=== PATIENT | female | born 1975 | race Caucasian/White ===

== ENCOUNTER 2021-12-07 13:05 | Outpatient (CLI) | payer OTHER, SELFPAY ==
--- OUTSIDE RECORDS SUMMARY | 2021-11-02 10:30 | XMS_ITS | Continuity of Care Document ---
:1975 Author Care Team Providers Name Role Phone MD Michael L Primary Care Physician CHASE Sarabia CNP M Attending Physician Allergies, Adverse Reactions, Alerts Allergen Type Severity Reaction Last Updated Verified Status No Known Drug Allergy Unknown January Yes Active Allergy 2020 Social History Smoking Status Status Start Date End Date Date of Observat ion Never smoked tobacco February 8:20am (finding) Observation Status Observation Response Date of Response Occasional alcohol consumption November 9:46am Nonsmoker November 19, 2018 9:46 am Does not use illicit drugs November 19 9:46am Additional Data Assigned Sex Female Problems Active Problems Medical Problem Onset Date Status Migraines Active Encounter for screening for COVID-19 Act fiorella Cough Active History of appendectomy Active History of D&C Active History of esophagogastroduodenoscopy Ac tive (EGD) Medications Medication Status Dose Units Route Directions Qty Days Start End Ins tructions Date Date Amoxicillin Active 875 MG PO Twice Daily For 10 Days er 2020 1:46pm Acetaminophe Disconti 1 TABLET PO Q4-6H Prn November t FOR VICODIN n/Hydrocodon nued , , 7.5/750 e Bitart 2011 2011 (Vicodin 4:47pm 9:11am 7.5/750) 7.5 Mg/750 Mg TAB Acetaminophe Disconti 1 - 2 TABLET PO Every 4-6 May aditya PRN n/Hydrocodon nued Hours , e Bitart 2010 02, (Vicodin) 5 4:47pm 2010 Mg/500 Mg 10:23a TAB m Amoxicillin Disconti 875 MG PO Twice Daily July m nued For 10 Days 9, 2020, 5:28pm 2020 12:37p m Amoxicillin Disconti 500 MG PO Tid X 10 August nued Days , , 2015 2015 7:00pm 3:50pm Amoxicillin Disconti 875 MG PO Twice A Day 14 Oct e nued y , 2008 3:58pm 11:46a m Amoxicillin Disconti 875 TABLET PO Twice A Day Augustu st & Pot nued , , Clavulanate 2006 2007 (Augmentin) 2:01pm 10:24a 875 Mg/125 m Mg TAB Azithromycin Disconti 250-50 MG PO As Directed 6 Decembe D ecemb 500 MG ON DAY (Zithromax nued 0 r 10th, er 1 THEN 250 MG Z-Ken) 250 2013, DAILY X 4 Mg TAB 6:22pm 2013 MORE DAYS 1:43pm Benzonatate Disconti 200 MG PO Three Times 30 Decembnov y nued A Day as r , , needed 2018 2019 1:21pm 11:26a m Calcium Disconti Unknow PO Daily 100 Septem Carbonate nued n Dose kennedy 2020 3:43pm Cholecalcife Disconti 5000 UNIT PO Daily 100 Septem rol (Vitamin nued kennedy D) 5,000 , Unit TAB 2020 3:43pm Cholecalcife Disconti 1000 UNIT PO Twice A Day st rol (Vitamin nued , D-3) 1,000 2011 Unit TAB 8:16pm Cyclobenzapr Disconti 10 MG PO Three Times 08 December Dece mb ine Hcl nued A Day as 11, er needed 2018, 10:06am 2018 12:37p m Diphtheria/T Disconti 0.5 ML IM Once Februaryobe etanus/Acell nued 2nd, r 2nd, Pertussis 2016 2016 (Adacel) 0.5 1:15pm 2:06pm Ml INJ Doxycycline Disconti 100 MG PO Twice A Day 6 May uar start Hyclate nued r , y medication 2010, the day prior 2:40pm 2011 to the 3:26pm procedure. Etonogestrel Disconti 1 UNIT VA As Directed August st -Ethinyl nued 9th, 13th, Estradiol 2006 2007 (Nuvaring) 1:43pm 10:24a MIS m Fluconazole Disconti 150 MG PO Once November REPEAT IN nued 10th, 7th, 3 DAYS 2011 2011 10:28am 9:11am Fluconazole Disconti 150 MG PO Once December Delfin e one tab (Diflucan) nued , er today. I f 150 Mg TAB 2010 08, still 3:06pm 2010 symptomatic 3:26pm in 3 days, okay to repeat. Fluticasone Disconti 2 SPRAY EACH Daily Propionate nued NOSTR y (Flonase) 50 , Mcg/1 Maud 2009 DANNY 3:44pm Hydrocortiso Disconti 1 MARILU TOP Twice A Day Julyo be STOP AFTER 2 ne nued , r 2nd, WEEKS. (Hydrocortis 2016 2016 one Cream) 5:48pm 12:54p 2.5 % CRE m Hydrocortiso Disconti 2.5 % TX Three Times December aditya ne (Rectal) nued A Day , ry (Anusol-Hc) 2007 10, 2.5 % CRE 11:11am 2008 3:41pm Influenza Disconti 0.5 ML IM Once Februaryobe Virus Vacc nued , r Triv Types 2009, A&B (Fluarix 11:33am 2009) 0.5 3:29pm Ml INJ Influenza Disconti 0.5 ML IM Once Virus Vacc nued r 11th, er Triv Types 2008 11, A&B 1:04pm 2008 (Fluarix) 1:15pm 0.5 Ml INJ Influenza Disconti 0.5 ML IM Once Februaryobe Virus Vacc nued , r Triv Types 2005 24, A&B 3:59pm 2005 (Fluarix) 4:12pm 0.5 Ml INJ Influenza Disconti 0.5 ML IM Once Februaryobe Virus nued , r Vaccine 2010, (Fluzone Pf 3:59pm 2010 [id number] 4:00pm (0.5 Ml)) 0.5 Ml INJ Influenza Disconti 0.5 ML IM Once Februaryobe Virus nued , r Vaccine 2011, Split 11:03am 2011 (Fluzone Pf 11:21a [id number] m (0.5 Ml)) 0.5 Ml INJ Lactated Disconti 1 L IV Once 1 Februar Februa Ringer's nued y , ry 2011, 5:03pm 2011 5:06pm Loteprednol Disconti 1 DROP OP Qid X 10 12 May Februa Etabonate nued Days , (Alrex) 0.2 2016 05, % RIGOBERTO 2:12pm 2016 3:22pm Multiple Disconti 1 TAB PO Daily Vitamins W/ nued kennedy Minerals , (Womens 2020 Multivitamin 3:43pm ) 1 Tab TAB Multiple Disconti 1 TAB PO Daily August Vitamins W/ nued , Minerals 2018 (Airborne) 1 10:50a Tab TAB m Multivitamin Disconti 1 TAB PO Daily Octobe s nued r , (Multivitami 2016 n/Minerals) 12:54p TAB m Norethindron Disconti 0.35 MG PO Daily February e nued , , (Contracepti 2011 2014 ve) (Liudmila) 11:03am 3:43pm 0.35 Mg TAB Omeprazole Disconti 20 MG PO Twice A Day Octobe nued r 2011 10:34a m Omeprazole Disconti 20 MG PO Daily 08 September nued 2011 10:22a m Ondansetron Disconti 4 MG PO Q6hrs uadecember (Zofran) 2 nued y , , Mg/Ml INJ 2006 2007 4:14pm 10:24a m Ondansetron Disconti 4 MG PO Every 8 August Hcl nued Hours as , , (Ondansetron needed 2018 2018 Odt) 4 Mg 2:03pm 10:50a TAB m Ondansetron Disconti 4 MG PO Q6hr 08 September Octobe Hcl nued , r 2011, 9:40am 2011 10:34a m Ondansetron Disconti 4 MG PO Q6hr May Hcl nued , 2011 9:25am 9:40am Ondansetron Disconti 4 MG IV Once 1 Februar Februa Hcl (Zofran nued y 24, ry Inj) 2 Mg/Ml 2011, ML 5:03pm 2011 5:06pm Ondansetron Disconti 4 MG PO Every 6 10 June Februa Hcl (Zofran) nued Hours as , ry 4 Mg TAB needed 2010 02, 12:06pm 2009 10:24a m Ondansetron Disconti 4 MG PO As Needed December Hcl (Zofran) nued , 4 Mg TAB 2007 10:24a m Ondansetron Disconti 4 MG PO Novem Hcl (Zofran) nued er 4 Mg TAB 2005 1:37pm Oseltamivir Disconti 75 MG PO Twice A Day 10 [facility] ch Phosphate nued r , , (Tamiflu) 75 2013 2015 Mg CAP 2:14pm 8:09am Oseltamivir Disconti 75 MG PO Twice A Day 10 [facility] ch Phosphate nued r , , (Tamiflu) 75 2013 2016 Mg CAP 2:39pm 8:09am Oxycodone/Ac Disconti 1 TABLET PO Every 6 August etaminophen nued Hours as , , needed 2018 2018 12:03pm 9:19am Pantoprazole Disconti 20 MG PO As Needed Augu st Sodium nued r , , (Protonix) 2005 2007 40 Mg TABEC 1:59pm 10:24a m Pantoprazole Disconti 40 MG PO Daily 30 uar December Sodium nued y , , (Protonix) 2006 2007 40 Mg TABEC 4:14pm 10:24a m Pantoprazole Disconti 20 MG PO Daily 10 March Novemb Sodium nued 24, er (Protonix) 2005 17, 40 Mg TABEC 4:02pm 2005 1:59pm Pantoprazole Disconti 20 MG PO Daily 30 Febobe Sodium nued r (Protonix) , 40 Mg TABEC 2005 4:02pm Penicillin V Disconti 500 MG PO Twice A Day August Apri l Potassium nued , 2018 2:00pm 10:50a m Penicillin V Disconti 500 MG PO Three Times October ar Potassium nued A Day , y 2015 6:47pm 1:44pm Penicillin V Disconti 500 MG PO Twice A Day 19 October Potassium nued 2011 9:10am Polymyxin/Tr Disconti 1 DROP RIGHT Every 3-4 February ar TO AFFECTED imethoprim nued EYE Hours , y EYE Sulfate 2008, (Polytrim) 11:36am 2009 SONIDO 3:44pm Ranitidine Disconti 150 MG PO Bedtime Octobe Hcl nued r 2011 10:34a m Sulfamethoxa Disconti 1 TAB PO Twice A Day November st zole-Trimeth nued , , oprim 2019 2019 (Bactrim Ds) 11:35am 1:28pm 800 Mg/160 Mg TAB Triamcinolon Disconti 10 MG IM/IV/ Once December e Acet nued SC , , (Kenalog-40) 2019 2019 40 Mg/1 Ml 1:50pm 2:52pm SUSP Valacyclovir Disconti 1 GRAMS PO Twice A Day August Hcl nued , , (Valtrex) 2018 Gm TAB 12:03pm 9:19am Valacyclovir Disconti 500 MG PO Twice A Day August Hcl nued , , (Valtrex) 2018 2018 500 Mg TAB 12:03pm 9:19am Valacyclovir Disconti 1 GRAMS PO Three Times 30 August Apr l Hcl nued A Day , , (Valtrex) 2018 Gm TAB 6:47pm 12:03p m Vit Disconti 1 TABLET PO Daily July B12/Iron/Fol nued , ic Ac/Intrin 2013 Fact 3:43pm ( Multivit-Min W/Fe-Fa) TAB Vit Disconti 1 TABLET PO Daily December B12/Iron/Fol nued , ic Ac/Intrin 2007 Fact 10:24a ( m Multivit-Min W/Fe-Fa) TAB Immunizations Immunization Event Date Not Given Dose Superintendent Building Lot Vac cine Reason Number Number Informatio n Statement (VIS) Deta il Influenza March 12 [employer] [id number] 2007 Influenza February 10 Glaxosmithkline [id number] 2009 Influenza February 11 San[employer]i Paste[employer] [id number] 2010 Influenza February 12 San[employer] Pasteur [id number] 2011 Influenza January 14 [id number] 2016 Tetanus/Dipther July 19, [place] 2002 Tdap February 10 SANOFI [id number] (adolescent/frank 2016 lt) Advance Directives Advance Directive Response Recorded Date/Time Does Pt have Health Care No August 09 6 12:35pm Directive? Has patient completed a No December 27 0 2:17pm Health Care Directive? Insurance Providers Guarantor Shari Bonilla Address [address] [place], [place] [id number] Contact Info. Home Phone: C Payer Policy Id Coverage Id Subscriber's Subscriber Id Effective E xpiration Name Date Date [facility] [id number] Meet Bonilla May 12, [employer] 2016 Choice Plan of Treatment Future Tests Future scheduled test information is unavailable Pending Tests Pending diagnostic test information is unavailable Future Visits Future appointment information is unavailable Referrals to Other Providers Reason for Referral Start Provider Provider Contact Provider Address Referral Date Information PCP, UNASSIGNED Future Procedures Procedure Name Scheduled Date EGD BERNICE Bilat Mammo Scrn Future Medications Future medication information is unavailable Patient Instructions Genital Herpes Simplex (ED) Viral Syndrome (ED)
--- NOTE | 2021-12-07 13:00 | CRLHL7_ITS ---
For Patients: As a result of the Century Cures Act, medical imaging exams and procedure reports are released immediately into your electronic medical record. You may view this report before your referring provider. If you have questions, please contact your health care provider. BILATERAL MAMMOGRAM WITH COMPUTER-AIDED DETECTION AND TOMOSYNTHESIS TECHNIQUE: CC and MLO views were obtained. These mammographic images have been obtained using full-field digital technique. These mammographic images were interpreted with the benefit of computer-aided detection. Breast Tomosynthesis was used in this interpretation. COMPARISON FILM: 09/14/20, 10/20/18, 03/06/17 FINDINGS: The breasts are heterogeneously dense, which may obscure small masses IMPRESSION: There is no radiographic evidence for malignancy. ASSESSMENT: BI-RADS Category 1: Negative RECOMMENDATION: Routine screening mammogram in 1 year. A lay language report of this examination will be provided to the patient. Eric Ambrose M.D. Diagnostic Radiologist [email or web address] HEATH/Dictated by: Eric Ambrose MD @ 12/10/2021 9:11:00 AM (Electronically Signed)
== END 2021-12-07 13:06 | disposition home or self-care (01) ==
LOC: MAMMO 13:06
PROVIDERS: Visit Provider Obstetrics & Gynecology
DX: Z12.31 Encounter for screening mammogram for malignant neoplasm of breast (principal); R92.2 Inconclusive mammogram
CPT/HCPCS: 77063; 77067

== ENCOUNTER 2021-12-24 11:19 | Outpatient (CLI) | payer OTHER, SELFPAY ==
[2021-12-24 13:11] LABS: Glucose* 97 mg/dL (60-115)
[2021-12-24 14:17] LABS: Free T4 Free Thyroxine* 1.13 ng/dL (0.70-1.85)
== END 2021-12-24 11:20 | disposition home or self-care (01) ==
LOC: NFLDREF 11:20
PROVIDERS: Visit Provider Obstetrics & Gynecology
DX: Z01.419 Encounter for gynecological examination (general) (routine) without abnormal findings (principal); Z13.1 Encounter for screening for diabetes mellitus; Z13.29 Encounter for screening for other suspected endocrine disorder
CPT/HCPCS: 82947; 84439; 84443

== ENCOUNTER 2022-01-18 15:30 | Outpatient (RCR) | payer OTHER, SELFPAY | END 2022-05-02 11:04 | disposition home or self-care (01) | PROVIDERS: Visit Provider Surgery | DX: R35.0 Frequency of micturition (principal); Z51.89 Encounter for other specified aftercare | CPT/HCPCS: 97110; 97140; 97163; 97535 ==

== ENCOUNTER 2022-04-23 12:47 | Outpatient (CLI) | payer OTHER, SELFPAY ==
[2022-04-23 23:23] LABS: Free T4 Free Thyroxine* 0.93 ng/dL (0.70-1.85)
== END 2022-04-23 12:48 | disposition home or self-care (01) ==
LOC: LKVREF 19:54
PROVIDERS: Visit Provider Obstetrics & Gynecology
DX: N39.0 Urinary tract infection, site not specified (principal); Z13.29 Encounter for screening for other suspected endocrine disorder
CPT/HCPCS: 84439; 84443; 87086

== ENCOUNTER 2022-10-22 14:14 | Outpatient (CLI) | payer OTHER, SELFPAY | END 2022-10-22 14:15 | disposition home or self-care (01) | LOC: LKVREF 14:15 | PROVIDERS: Visit Provider Obstetrics & Gynecology | DX: R79.89 Other specified abnormal findings of blood chemistry (principal) | CPT/HCPCS: 84443 ==

== ENCOUNTER 2023-11-19 15:19 | Outpatient (CLI) | payer BC, SELFPAY ==
--- NOTE | 2023-11-19 15:20 | CRLHL7_ITS ---
For Patients: As a result of the Century Cures Act, medical imaging exams and procedure reports are released immediately into your electronic medical record. You may view this report before your referring provider. If you have questions, please contact your health care provider. BILATERAL SCREENING MAMMOGRAM WITH COMPUTER-AIDED DETECTION AND TOMOSYNTHESIS TECHNIQUE: CC and MLO views were obtained. These mammographic images have been obtained using full-field digital technique. These mammographic images were interpreted with the benefit of computer-aided detection. Breast Tomosynthesis was used in this interpretation. COMPARISON FILM: 12/07/21, 09/14/20, 10/20/18. FINDINGS: The breasts are heterogeneously dense, which may obscure small masses. IMPRESSION: There is no radiographic evidence for malignancy. ASSESSMENT: BI-RADS Category 2: Benign RECOMMENDATION: Routine screening mammogram in 1 year. A lay language report of this examination will be provided to the patient. Marc Vega M.D. Diagnostic/Nuclear Medicine Radiologist [email or web address] EVELYNE/jose SP/Dictated by: Marc Vega MD @ 11/20/2023 10:53:00 AM (Electronically Signed)
== END 2023-11-19 15:20 | disposition home or self-care (01) ==
LOC: MAMMO 15:19
PROVIDERS: Visit Provider Obstetrics & Gynecology
DX: Z12.31 Encounter for screening mammogram for malignant neoplasm of breast (principal); R92.2 Inconclusive mammogram
CPT/HCPCS: 77063; 77067

== ENCOUNTER 2023-11-21 08:09 | Outpatient (CLI) | payer BC, SELFPAY | END 2023-11-21 08:10 | disposition home or self-care (01) | LOC: NFLDREF 17:43 | PROVIDERS: Visit Provider Obstetrics & Gynecology | DX: Z01.419 Encounter for gynecological examination (general) (routine) without abnormal findings (principal); Z13.1 Encounter for screening for diabetes mellitus; Z13.6 Encounter for screening for cardiovascular disorders; Z13.29 Encounter for screening for other suspected endocrine disorder | CPT/HCPCS: 80061; 84439; 84443 ==

== ENCOUNTER 2024-07-26 09:36 | Outpatient (CLI) | payer BC, SELFPAY | END 2024-07-26 09:37 | disposition home or self-care (01) | PROVIDERS: Visit Provider Obstetrics & Gynecology | DX: R79.89 Other specified abnormal findings of blood chemistry (principal); N92.6 Irregular menstruation, unspecified; R23.2 Flushing | CPT/HCPCS: 82565; 84439; 84443 ==

== ENCOUNTER 2024-08-04 08:53 | Outpatient (CLI) | payer BC, SELFPAY ==
--- NOTE | 2024-08-04 09:15 | CRLHL7_ITS ---
For Patients: As a result of the Century Cures Act, medical imaging exams and procedure reports are released immediately into your electronic medical record. You may view this report before your referring provider. If you have questions, please contact your health care provider. INDICATION: Irregular menstruation. IUD check. TECHNIQUE: Transabdominal and transvaginal scanning was performed. Transvaginal scanning was performed to optimally evaluate the endometrium and adnexa. Ovarian blood flow was evaluated with color-flow and pulsed Doppler. COMPARISON: None FINDINGS: The uterus is normal in size and shape. The uterus measures 9.1 x 4.8 x 5.2 cm. No myometrial mass is evident. A 2.1 x 1.2 x 1.1 cm endometrial polyp appears to be present in the uterine fundus. Color-flow Doppler demonstrates blood flow within this lesion. An IUD is present in the uterine cavity and appears to be properly positioned. The ovaries are normal in size and contain a number of follicles. The right ovary measures 3.3 x 2.6 x 1.8 cm and left 5.2 x 2.6 x 2.5 cm. Ovarian blood flow is demonstrated with color-flow and pulsed Doppler. No adnexal mass is evident. No free fluid is demonstrated. IMPRESSION: 1. Apparent 2.1 x 1.2 x 1.1 cm endometrial polyp in the uterine fundus. 2. Properly positioned IUD. Dictated by Troy Tran MD @ 08/05/2024 4:47:59 AM (Electronically Signed)
== END 2024-08-04 08:54 | disposition home or self-care (01) ==
LOC: US 08:54
PROVIDERS: Visit Provider Obstetrics & Gynecology
DX: N92.6 Irregular menstruation, unspecified (principal); N84.0 Polyp of corpus uteri; T83.32XA Displacement of intrauterine contraceptive device, initial encounter
CPT/HCPCS: 76830; 80061; 84481; 86376; 86800

== ENCOUNTER 2024-08-30 19:00 | Outpatient (CLI) | payer BC, SELFPAY | END 2024-08-30 19:01 | disposition home or self-care (01) | LOC: LKVREF 19:01 | PROVIDERS: Visit Provider Family Medicine | DX: Z52.4 Kidney donor (principal); E11.9 Type 2 diabetes mellitus without complications | CPT/HCPCS: 80053; 82043; 82570 ==

== ENCOUNTER 2024-09-14 06:00 | Day surgery (SDC) | payer BC, SELFPAY ==
[2024-09-14] MEDS: LACTATED RINGERS 1000 ML 1,000 ML 100 ML IV (06:05)
[2024-09-14 06:26] VITALS: BMI 34.9
[2024-09-14 06:38] LABS: Ur HCG Qualitative* Negative (Negative)
[2024-09-14 06:42] VITALS: BP 116/77; PULSE 75; RESP 16; TEMP 36.6; O2SAT 97
[2024-09-14] MEDS: SODIUM CHLORIDE 0.9 % (FLUSH) 10 ML SYRINGE IVF (06:43)
[2024-09-14] MEDS: CEFAZOLIN 2 GM INJ IVP (07:35)
[2024-09-14] MEDS: LIDOCAINE 1% MDV 20 ML INJECTION (07:41)
[2024-09-14] MEDS: BUPIVACAINE 0.25% 30 ML INJECTION (07:41)
[2024-09-14] MEDS: levonorgestreL (Mirena) IUD 1 EACH INTRAUTERI (07:58)
[2024-09-14 08:10] VITALS: BP 102/69; PULSE 69; RESP 12; TEMP 36.2; O2SAT 97
--- NOTE | 2024-09-14 08:10 | P.GYNPRC_ITS ---
Procedure Note Date of procedure: 09/14/24 Will [facility] bill your pro fee for this procedure?: Yes Pre-op diagnosis: 1. Irregular persistent uterine bleeding on Mirena IUD 2. Possible endometrial polyp by ultrasound Post-op diagnosis: 1. Irregular persistent uterine bleeding on Mirena IUD 2. Endometrial polyp Procedure: 1. Hysteroscopy 2. D&C 3. Polypectomy $. Removal and replacement of Mirena IUD Anesthesia: MAC and local (paracervical block) Complications: None Surgeon: Margie Gonzalez MD Estimated blood loss (mL): 10 Pathology: specimen obtained, sent to pathology (Endometrial polyp and endometrial curettings (sent together)) Condition: stable Disposition: same day Findings: IUD strings retracted within the endocervical canal. Large endometrial polyp filling the endometrial cavity. Background endometrium normal in appearance. Normal tubal ostia bilaterally. Procedure Description: After obtaining informed consent, the patient was taken to the operating room where she received monitored anesthesia care. She was prepared and draped in the normal sterile fashion, in the dorsal lithotomy position. An open-sided bivalve speculum was introduced into the vagina and the cervix visualized. The anterior lip of the cervix was grasped with a single-tooth tenaculum for traction. A paracervical block was then administered using a total of 20 mL of a 50/50 mixture of 0.25% Marcaine and 1% lidocaine plain. The uterus was gently sounded. Sound length was 8.5 cm. A Tenzin Stone polyp forceps was inserted into the endocervix and on the second attempt, the IUD strings were grasped blindly and the Mirena IUD removed without difficulty. The cervix was gently dil ated to a #6 Hegar dilator. A hysteroscope was then advanced under direct visualization through the cervix into the uterine cavity. Sterile normal saline was used as distending medium. The uterine cavity was carefully inspected with the findings noted above. Pictures were taken for documentation purposes. The TruClear morcellator was inserted through the operating channel in the hysteroscope. The morcellator was used to remove the endometrial polyp in its entirety. The hysteroscope was then removed. The endometrial lining was then sharply curetted and a gritty feel was appreciated throughout. A new Mirena IUD was then loaded into the introducer, the length was set to 8.5 cm, and the IUD was inserted into the uterus to the level of the fundus and deployed. The introducer was removed and the string trimmed to 3 cm. The tenaculum was removed. There was little bleeding from the tenaculum site, which was controlled with direct pressure sponge stick. All instruments were then re moved. The patient tolerated the procedure well. Sponge, lap, needle, and instrument counts reported as correct x2. The patient was taken to the recovery room awake in a stable condition. She received 2 g IV Ancef preoperatively and IV acetaminophen at the conclusion of the procedure.
--- NOTE | 2024-09-14 08:11 | P.ANES_ITS ---
Anesthesia Charges Start Date/Time Anesthesia Start Date: 09/14/24 Anesthesia Start Time: 07:23 Stop Date/Time Anesthesia Stop Date: 09/14/24 Anesthesia Stop Time: 08:10 Coding CPT Codes CPT Codes: ANESTH HYSTEROSCOPE/GRAPH - 61651 ([id number]) P2 - PATIENT W/MILD SYST DISEASE, QK - TOXICOLOGIST 2-4 CNCRNT ANES PROC, QX - JIGMAN SVC W/ MD MED DIRECTION
--- NOTE | 2024-09-14 08:11 | W.ANESCHARGE ---
Anesthesia Charges Start Date/Time Anesthesia Start Date: 09/14/24 Anesthesia Start Time: 07:23 Stop Date/Time Anesthesia Stop Date: 09/14/24 Anesthesia Stop Time: 08:10 Coding CPT Codes CPT Codes: ANESTH HYSTEROSCOPE/GRAPH - 74345 ([id number]) P2 - PATIENT W/MILD SYST DISEASE, QK - WASTE CHOPPER 2-4 CNCRNT ANES PROC, QX - BULLET SWAGING MACHINE OPERATOR SVC W/ MD MED DIRECTION
[2024-09-14 08:15] VITALS: BP 104/77; PULSE 60; RESP 12; O2SAT 98
--- NOTE | 2024-09-14 08:18 | SUR.OPER ---
deficit= 370
[2024-09-14 08:30] VITALS: BP 106/88; PULSE 54; RESP 12; O2SAT 98
--- NOTE | 2024-09-14 08:31 | P.ANES_ITS ---
Anesthesia Charges Start Date/Time Anesthesia Start Date: 09/14/24 Anesthesia Start Time: 07:23 Stop Date/Time Anesthesia Stop Date: 09/14/24 Anesthesia Stop Time: 08:10 Coding CPT Codes CPT Codes: ANESTH HYSTEROSCOPE/GRAPH - 95388 ([id number]) QK - QUOTER 2-4 CNCRNT ANES PROC, QX - TOWBOAT OPERATOR SVC W/ MD MED DIRECTION, P2 - PATIENT W/MILD SYST DISEASE
--- NOTE | 2024-09-14 08:31 | W.ANESCHARGE ---
Anesthesia Charges Start Date/Time Anesthesia Start Date: 09/14/24 Anesthesia Start Time: 07:23 Stop Date/Time Anesthesia Stop Date: 09/14/24 Anesthesia Stop Time: 08:10 Coding CPT Codes CPT Codes: ANESTH HYSTEROSCOPE/GRAPH - 94402 ([id number]) QK - INTERNET SALES ASSOCIATE 2-4 CNCRNT ANES PROC, QX - PROPERTY HANDLER SVC W/ MD MED DIRECTION, P2 - PATIENT W/MILD SYST DISEASE
[2024-09-14 08:45] VITALS: BP 100/77; PULSE 51; RESP 12; O2SAT 98
[2024-09-14 09:00] VITALS: BP 105/74; PULSE 60; RESP 12; O2SAT 98
--- NOTE | 2024-09-14 10:02 | SUR.OPER ---
[id number]
== END 2024-09-14 09:20 | disposition home or self-care (01) ==
LOC: OR 06:02
PROVIDERS: Visit Provider Obstetrics & Gynecology
PROC: 0UDB8ZZ Extraction of Endometrium, Via Natural or Artificial Opening Endoscopic (ICD-10-PCS; CPT 58558; principal; 2024-09-14 07:15)
DX: N92.4 Excessive bleeding in the premenopausal period (principal); N93.8 Other specified abnormal uterine and vaginal bleeding; Z30.433 Encounter for removal and reinsertion of intrauterine contraceptive device; N84.0 Polyp of corpus uteri; E11.9 Type 2 diabetes mellitus without complications
CPT/HCPCS: 58558; 58301; 58300; 00952; 81025; 88305; J2003; C1782; J0131; J0665; J0690; J1100; J1885; J2250; J2405; J2704; J3010; J7120; J7298

== ENCOUNTER 2024-11-11 08:35 | Outpatient (CLI) | payer BC, SELFPAY ==
[2024-11-11 13:45] LABS: Cholesterol* 211 mg/dL (90-199); HDL Cholesterol* 41 mg/dL (>=50); Triglycerides* 77 mg/dL (40-149)
== END 2024-11-11 08:36 | disposition home or self-care (01) ==
LOC: NPINS 08:36
PROVIDERS: Visit Provider Internal Medicine Endocrinology, Diabetes & Metabolism
DX: E05.90 Thyrotoxicosis, unspecified without thyrotoxic crisis or storm (principal)
CPT/HCPCS: 80061; 82728

== ENCOUNTER 2024-11-11 08:49 | Outpatient (CLI) | payer BC, SELFPAY | END 2024-11-11 08:50 | disposition home or self-care (01) | LOC: NFLDREF 11-16 01:40 | PROVIDERS: Visit Provider Family Medicine | DX: E06.3 Autoimmune thyroiditis (principal); Z52.4 Kidney donor; E05.90 Thyrotoxicosis, unspecified without thyrotoxic crisis or storm | CPT/HCPCS: 82043; 82570; 84439; 84443; 84481 ==

== ENCOUNTER 2025-02-28 18:51 | Outpatient (CLI) | payer BC, SELFPAY | END 2025-02-28 18:52 | disposition home or self-care (01) | LOC: LKVREF 18:51 | PROVIDERS: Visit Provider Family Medicine | DX: E78.00 Pure hypercholesterolemia, unspecified (principal); Z52.4 Kidney donor | CPT/HCPCS: 80048 ==

== ENCOUNTER 2025-03-10 15:40 | Outpatient (CLI) | payer BC, SELFPAY ==
--- NOTE | 2025-03-10 15:40 | CRLHL7_ITS ---
For Patients: As a result of the Century Cures Act, medical imaging exams and procedure reports are released immediately into your electronic medical record. You may view this report before your referring provider. If you have questions, please contact your health care provider. INDICATION: BILATERAL SCREENING MAMMOGRAM, ASYMPTOMATIC 49 Y/O FEMALE COMPARISON: 11/19/2023, 12/07/2021, 09/14/2020 TECHNIQUE: Digital mammogram in CC and MLO projections including computer-aided detection (CAD) and tomosynthesis. BREAST COMPOSITION: The breasts are heterogeneously dense, which may obscure small masses. FINDINGS: No suspicious findings. ASSESSMENT: BI-RADS 2 Benign RECOMMENDATION: Annual screening mammogram. A lay language report of this examination will be provided to the patient. Dictated by: Eric Ambrose MD @ 03/11/2025 09:36:23 (Electronically Signed)
== END 2025-03-10 15:41 | disposition home or self-care (01) ==
LOC: MAMMO 15:40
PROVIDERS: Visit Provider Obstetrics & Gynecology
DX: Z12.31 Encounter for screening mammogram for malignant neoplasm of breast (principal); R92.333 Mammographic heterogeneous density, bilateral breasts
CPT/HCPCS: 77063; 77067